=== PATIENT | female | born 1980 | race Asian ===

== ENCOUNTER 2023-02-20 16:27 | Inpatient (IN) | payer OTHER ==
[~2023-02-20] VITALS: Ht 162.6 cm; Wt 76.4 kg
[2023-02-20] MEDS ORDERED: SODIUM CHLORIDE 0.9% 1,000 ML IV ONE (16:45)
[2023-02-20 17:14] LABS: BASOPHILS % (AUTO) 0.6 % (0.0-2.0); EOSINOPHILS % (AUTO) 1.7 % (1.0-6.0); HEMATOCRIT 45.9 % (36-46); HEMOGLOBIN 14.3 g/dL (12.0-16.0); LYMPHOCYTES # (AUTO) 3.6 K/uL (1.0-4.8); LYMPHOCYTES % (AUTO) 12.7 % (22.0-44.0); MEAN CORPUSCULAR HEMOGLOBIN 19.3 pg (26.0-34.0); MEAN CORPUSCULAR VOLUME 62 fL (80-100); MONOCYTES % (AUTO) 3.6 % (2.0-9.0); NEUTROPHILS # (AUTO) 22.9 K/uL (1.8-7.7); NEUTROPHILS % (AUTO) 81.4 % (40.0-70.0); PLATELET COUNT (AUTO) 390 K/uL (150-450); RED BLOOD CELL COUNT(AUTO) 7.38 MIL/uL (4.00-5.20); RED CELL DISTRIBUTION WIDTH 15.6 % (11.5-14.5); WHITE BLOOD COUNT (AUTO) 28.1 K/uL (4.5-11.0)
[2023-02-20] MEDS ORDERED: LABETALOL HCL 5 MG/ML 20 ML VIAL IVP ONE ×2 (17:15→19:30)
[2023-02-20 17:16] LABS: GLUCOMETER DEV NAME(LOC) ER.6; GLUCOSE,POINT OF CARE 491 MG/DL (70-110)
[2023-02-20] MEDS ORDERED: INSULIN REGULAR, HUMAN 100 UNITS/ML IVP ONE ×3 (17:30→21:45)
[2023-02-20 17:43] LABS: ALANINE AMINOTRANSFERASE 15 U/L (12-78); ALBUMIN 3.5 g/dL (3.4-5.0); ALKALINE PHOSPHATASE 133 U/L (46-116); ANION GAP 17 mmol/L (8-16); ASPARTATE AMINOTRANSFERASE 20 U/L (15-37); BILIRUBIN,TOTAL 0.4 mg/dL (0.1-1.0); CALCIUM, TOTAL 9.3 mg/dL (8.8-10.5); CARBON DIOXIDE 22 mmol/L (22-29); CHLORIDE 96 mmol/L (98-107); CREATINE KINASE, TOTAL ONLY 56 U/L (26-192); CREATININE 1.18 mg/dL (0.60-1.30); GLOMERULAR FILTR. RATE CALC 51 mL/min (>60); HCG,QUANTITATIVE 1 mIU/mL (0-6); POTASSIUM 3.3 mmol/L (3.5-5.1); SODIUM SERUM 135 mmol/L (136-145); TOTAL PROTEIN, SERUM 8.3 g/dL (6.4-8.2); UREA NITROGEN, BLOOD 7 mg/dL (7-18)
[2023-02-20 17:49] LABS: TROPONIN I-HIGH SENSITIVITY 53 ng/L (<51)
[2023-02-20 17:50] LABS: GLUCOSE,RANDOM 474 mg/dL (70-110); LACTIC ACID 7.6 mmol/L (0.4-2.0)
[2023-02-20 18:21] LABS: RBC MORPHOLOGY COMMENT ABNORMAL RBC MORPH
[2023-02-20] MEDS ORDERED: AMLO5TAB66 PO (18:50)
[2023-02-20] MEDS ORDERED: LOSA-382 PO (18:50)
[2023-02-20 19:37] LABS: GLUCOMETER DEV NAME(LOC) ER.6; GLUCOSE,POINT OF CARE 389 MG/DL (70-110)
[2023-02-20] MEDS ORDERED: NITROGLYCERIN 2% (1 GM=INCH) OINTMENT PACKET TP ONE (19:45)
[2023-02-20 20:20] LABS: APPEARANCE,URINE CLEAR (CLEAR); BILIRUBIN,URINE NEGATIVE (NEGATIVE); COLOR,URINE LIGHT YELLOW (YELLOW); GLUCOSE, URINE (UA) >=1000 mg/dL (NEGATIVE); KETONES,URINE TRACE mg/dL (NEGATIVE); LEUKOCYTE ESTERASE ,URINE NEGATIVE (NEGATIVE); NITRATE,URINE NEGATIVE (NEGATIVE); OCCULT BLOOD,URINE NEGATIVE (NEGATIVE); PH,URINE 6.5 (5.0-8.0); PH,URINE DRUG SCREEN 6.5 (5.0-8.0); PROTEIN,URINE 300-600,SEE CONFIRM mg/dL (NEGATIVE); SPECIFIC GRAVITIY, URINE 1.029 (1.003-1.030); UROBILINOGEN,URINE <=1.0 mg/dL (<=1.0)
[2023-02-20 20:26] LABS: AMPHET/METH SCREEN,URINE NEGATIVE (NEGATIVE); BARBITURATE SCREEN, URINE NEGATIVE (NEGATIVE); BENZODIAZEPINES SCREEN,URINE POSITIVE (NEGATIVE); CANNABINOID SCREEN,URINE NEGATIVE (NEGATIVE); COCAINE SCREEN,URINE NEGATIVE (NEGATIVE); METHADONE SCREEN, URINE NEGATIVE (NEGATIVE); OPIATE SCREEN,URINE NEGATIVE (NEGATIVE); PHENCYCLIDINE SCREEN,URINE NEGATIVE (NEGATIVE)
[2023-02-20 20:29] LABS: ALCOHOL, URINE DRUG SCREEN NEGATIVE (NEGATIVE)
[2023-02-20 20:34] LABS: BACTERIA,URINE None Seen /HPF (None Seen); RBC,URINE None Seen /HPF (0-2); SQUAMOUS EPITHELIAL CELL,UR Few /LPF (None Seen); SULFOSALICYLIC ACID,URINE 3+ (Negative); WBC,URINE 0-2 /HPF (0-5)
[2023-02-20 21:26] LABS: COVID AG,FIA SOURCE NASAL SWAB
[2023-02-20 21:43] LABS: SARS-COV2 (COVID) ANTIGEN,FIA Negative (Negative)
[2023-02-20 21:56] LABS: GLUCOMETER DEV NAME(LOC) ER.6; GLUCOSE,POINT OF CARE 379 MG/DL (70-110)
[2023-02-20] MEDS: POTASSIUM CHL 10 MEQ/WATER 50 ML IV SCH ×2 (22:25→22:26)
[2023-02-20] MEDS ORDERED: ONDANSETRON HCL 4 MG/2 ML VIAL IVP PRN (22:30)
[2023-02-20] MEDS ORDERED: ZOLPIDEM TARTRATE 5 MG TABLET PO PRN (22:30)
[2023-02-20] MEDS ORDERED: HydrALAZINE HCL 20 MG/ML VIAL IVP PRN (22:30)
[2023-02-20] MEDS ORDERED: MAGNESIUM HYDROXIDE SUSPENSION 30 ML UDCUP PO PRN (22:30)
[2023-02-20] MEDS ORDERED: BISACODYL 10 MG RECTAL RECTAL SUPPOSITORY PR PRN (22:30)
[2023-02-20] MEDS ORDERED: MORPHINE SULFATE 2 MG/ML SYRINGE IVP PRN (22:30)
[2023-02-20] MEDS ORDERED: LORazepam 2 MG/ML VIAL IVP PRN (22:45)
[2023-02-20] MEDS ORDERED: AmLODIPine BESYLATE 10 MG TABLET PO ONE (22:45)
[2023-02-20] MEDS ORDERED: DEXTROSE 50%-WATER 25 GM/50 ML SYRINGE IVP PRN (22:45)
[2023-02-20] MEDS ORDERED: VANCOMYCIN HCL 1.5 GM in DEXTROSE 5%-WATER 250 ML IV ONE (23:00)
[2023-02-20 23:11] LABS: GLUCOMETER DEV NAME(LOC) ER.6; GLUCOSE,POINT OF CARE 400 MG/DL (70-110)
[2023-02-20] MEDS: CefTRIAXone 1 GM/DEXTROSE 50 ML IV SCH (23:12)
[2023-02-20] MEDS: ACETAMINOPHEN 325 MG TABLET PO PRN (23:12)
[2023-02-21 01:10] VITALS: BP 162/96; PULSE 90; RESP 18; TEMP 98.1
[2023-02-21] MEDS: INSULIN LISPRO 100 UNITS/ML SQ PRN ×5 (01:11→20:13)
[2023-02-21 01:16] LABS: GLUCOMETER DEV NAME(LOC) 5N.1C; GLUCOSE,POINT OF CARE 339 MG/DL (70-110)
[2023-02-21] MEDS: HEPARIN SODIUM,PORCINE 5,000 UNITS/ML VIAL SQ SCH ×4 (01:16→23:43)
[2023-02-21] MEDS ORDERED: INFLUENZA VIRUS VACCINE QVS 2023-24 (6MO+)/PF 60 MCG/0.5 ML SYRINGE IM. ONE (04:15)
[2023-02-21 05:52] VITALS: BP 145/89; PULSE 93; RESP 18; TEMP 98.7
[2023-02-21 06:55] LABS: BASOPHILS % (AUTO) 0.4 % (0.0-2.0); EOSINOPHILS % (AUTO) 0.3 % (1.0-6.0); HEMATOCRIT 36.7 % (36-46); HEMOGLOBIN 11.8 g/dL (12.0-16.0); LYMPHOCYTES # (AUTO) 3.4 K/uL (1.0-4.8); LYMPHOCYTES % (AUTO) 14.2 % (22.0-44.0); MEAN CORPUSCULAR HEMOGLOBIN 19.5 pg (26.0-34.0); MEAN CORPUSCULAR HGB CONC 32.1 G/dL (31.0-37.0); MEAN CORPUSCULAR VOLUME 61 fL (80-100); MONOCYTES # (AUTO) 1.1 K/uL (0.1-1.0); MONOCYTES % (AUTO) 4.5 % (2.0-9.0); NEUTROPHILS # (AUTO) 19.5 K/uL (1.8-7.7); NEUTROPHILS % (AUTO) 80.6 % (40.0-70.0); PLATELET COUNT (AUTO) 364 K/uL (150-450); RED BLOOD CELL COUNT(AUTO) 6.04 MIL/uL (4.00-5.20); RED CELL DISTRIBUTION WIDTH 15.4 % (11.5-14.5); WHITE BLOOD COUNT (AUTO) 24.1 K/uL (4.5-11.0)
[2023-02-21 07:10] LABS: ANION GAP 9 mmol/L (8-16); CALCIUM, TOTAL 8.2 mg/dL (8.8-10.5); CARBON DIOXIDE 27 mmol/L (22-29); CHLORIDE 102 mmol/L (98-107); CREATININE 0.69 mg/dL (0.60-1.30); GLOMERULAR FILTR. RATE CALC > 60 mL/min (>60); GLUCOSE,RANDOM 229 mg/dL (70-110); POTASSIUM 3.8 mmol/L (3.5-5.1); SODIUM SERUM 138 mmol/L (136-145); UREA NITROGEN, BLOOD 6 mg/dL (7-18)
[2023-02-21 07:42] VITALS: BP 143/80; PULSE 91; RESP 18; TEMP 98
[2023-02-21] MEDS ORDERED: VANCOMYCIN HCL 1 GM in DEXTROSE 5%-WATER 250 ML IV SCH (08:00)
[2023-02-21] MEDS: ACETAMINOPHEN 325 MG TABLET PO PRN ×2 (08:46→20:12)
[2023-02-21] MEDS: LOSARTAN POTASSIUM 50 MG TABLET PO SCH (08:46)
[2023-02-21] MEDS: AmLODIPine BESYLATE 5 MG TABLET PO SCH (08:47)
[2023-02-21] MEDS: PANTOPRAZOLE SODIUM 40 MG DR TABLET PO SCH (08:48)
[2023-02-21] MEDS: DOCUSATE SODIUM 100 MG CAPSULE PO SCH ×2 (08:48→20:12)
[2023-02-21 09:07] LABS: GLUCOMETER DEV NAME(LOC) 5N.1C; GLUCOSE,POINT OF CARE 216 MG/DL (70-110)
[2023-02-21 09:35] LABS: RBC MORPHOLOGY COMMENT ABNORMAL RBC MORPH
[2023-02-21 11:12] VITALS: BP 145/76; PULSE 87; RESP 18; TEMP 98
[2023-02-21 15:21] VITALS: BP 156/91; PULSE 90; RESP 18; TEMP 98
[2023-02-21] MEDS: VANCOMYCIN 1GM/WATER(PEG/NADA) 200 ML IV SCH ×2 (16:23→23:05)
[2023-02-21 17:26] LABS: GLUCOMETER DEV NAME(LOC) 5N.1C; GLUCOSE,POINT OF CARE 227 MG/DL (70-110)
[2023-02-21 17:26] LABS: GLUCOMETER DEV NAME(LOC) 5N.1C; GLUCOSE,POINT OF CARE 381 MG/DL (70-110)
[2023-02-21] MEDS: INSULIN GLARGINE,HUM.REC.ANLOG 100 UNITS/ML SQ SCH (20:14)
[2023-02-21 20:29] VITALS: BP 151/80; PULSE 97; RESP 20; TEMP 98.5
[2023-02-22 00:34] VITALS: BP 148/81; PULSE 93; RESP 18; TEMP 99.1
[2023-02-22] MEDS: CefTRIAXone 1 GM/DEXTROSE 50 ML IV SCH ×2 (00:45→23:07)
[2023-02-22 02:46] LABS: GLUCOMETER DEV NAME(LOC) 5N.1C; GLUCOSE,POINT OF CARE 261 MG/DL (70-110)
[2023-02-22 04:55] VITALS: BP 159/100; PULSE 85; RESP 18; TEMP 98.4
[2023-02-22 06:01] LABS: GLUCOMETER DEV NAME(LOC) 5N.1C; GLUCOSE,POINT OF CARE 231 MG/DL (70-110)
[2023-02-22] MEDS: INSULIN LISPRO 100 UNITS/ML SQ PRN ×4 (06:04→20:51)
[2023-02-22 07:21] LABS: BASOPHILS % (AUTO) 0.9 % (0.0-2.0); EOSINOPHILS % (AUTO) 3.6 % (1.0-6.0); HEMATOCRIT 35.3 % (36-46); HEMOGLOBIN 11.2 g/dL (12.0-16.0); LYMPHOCYTES # (AUTO) 4.8 K/uL (1.0-4.8); MEAN CORPUSCULAR HEMOGLOBIN 19.3 pg (26.0-34.0); MEAN CORPUSCULAR HGB CONC 31.7 G/dL (31.0-37.0); MEAN CORPUSCULAR VOLUME 61 fL (80-100); MONOCYTES % (AUTO) 6.3 % (2.0-9.0); NEUTROPHILS # (AUTO) 9.1 K/uL (1.8-7.7); NEUTROPHILS % (AUTO) 58.2 % (40.0-70.0); PLATELET COUNT (AUTO) 320 K/uL (150-450); RED CELL DISTRIBUTION WIDTH 15.6 % (11.5-14.5); WHITE BLOOD COUNT (AUTO) 15.6 K/uL (4.5-11.0)
[2023-02-22 07:41] LABS: ANION GAP 4 mmol/L (8-16); CALCIUM, TOTAL 8.8 mg/dL (8.8-10.5); CARBON DIOXIDE 32 mmol/L (22-29); CHLORIDE 102 mmol/L (98-107); CREATININE 0.77 mg/dL (0.60-1.30); GLOMERULAR FILTR. RATE CALC > 60 mL/min (>60); GLUCOSE,RANDOM 241 mg/dL (70-110); POTASSIUM 4.4 mmol/L (3.5-5.1); SODIUM SERUM 138 mmol/L (136-145); UREA NITROGEN, BLOOD 11 mg/dL (7-18); VANCOMYCIN,RANDOM 13.4 mcg/mL (25.0-50.0)
[2023-02-22 08:18] VITALS: BP 164/104; PULSE 92; RESP 19; TEMP 98.8
[2023-02-22] MEDS: PANTOPRAZOLE SODIUM 40 MG DR TABLET PO SCH (08:32)
[2023-02-22] MEDS: AmLODIPine BESYLATE 5 MG TABLET PO SCH (08:32)
[2023-02-22] MEDS: DOCUSATE SODIUM 100 MG CAPSULE PO SCH ×2 (08:32→20:47)
[2023-02-22] MEDS: LOSARTAN POTASSIUM 50 MG TABLET PO SCH (08:32)
[2023-02-22] MEDS: ACETAMINOPHEN 325 MG TABLET PO PRN ×2 (08:33→12:28)
[2023-02-22] MEDS: VANCOMYCIN 1GM/WATER(PEG/NADA) 200 ML IV SCH ×2 (08:34→16:46)
[2023-02-22] MEDS: INSULIN GLARGINE,HUM.REC.ANLOG 100 UNITS/ML SQ SCH ×2 (08:54→20:52)
[2023-02-22] MEDS: HEPARIN SODIUM,PORCINE 5,000 UNITS/ML VIAL SQ SCH ×3 (08:55→23:07)
[2023-02-22 10:13] LABS: RBC MORPHOLOGY COMMENT ABNORMAL RBC MORPH
[2023-02-22 11:24] VITALS: BP 150/126; PULSE 94; RESP 19; TEMP 98.4
[2023-02-22 12:16] LABS: GLUCOMETER DEV NAME(LOC) 5N.1C; GLUCOSE,POINT OF CARE 266 MG/DL (70-110)
[2023-02-22 13:15] LABS: CHOL/HDL RATIO 4.5 (3.9-5.7); CHOLESTEROL 144 mg/dL (131-200); HDL CHOLESTEROL 32 mg/dL (40-60); LDL CHOL (CALC.) 40 mg/dL (0-130); TRIGLYCERIDES 360 mg/dL (15-150)
[2023-02-22] MEDS: HYDROCODONE/ACETAMINOPHEN 5-325 MG TABLET PO PRN (14:45)
[2023-02-22 15:18] VITALS: BP 142/94; PULSE 88; RESP 18; TEMP 98.2
[2023-02-22 17:31] LABS: GLUCOMETER DEV NAME(LOC) 5N.1C; GLUCOSE,POINT OF CARE 277 MG/DL (70-110)
[2023-02-22] MEDS: ASPIRIN 81 MG CHEWABLE TABLET PO SCH (18:31)
[2023-02-22] MEDS: CLOPIDOGREL BISULFATE 75 MG TABLET PO SCH (18:33)
[2023-02-22 19:57] VITALS: BP 159/91; PULSE 84; RESP 18; TEMP 98.5
[2023-02-23 00:14] VITALS: BP 160/96; PULSE 80; RESP 18; TEMP 98.4
[2023-02-23 04:47] VITALS: BP 158/94; PULSE 76; RESP 18; TEMP 98.2
[2023-02-23 06:26] LABS: GLUCOMETER DEV NAME(LOC) 5N.1C; GLUCOSE,POINT OF CARE 237 MG/DL (70-110)
[2023-02-23] MEDS: INSULIN LISPRO 100 UNITS/ML SQ PRN ×3 (06:32→20:41)
[2023-02-23 06:56] LABS: GLUCOMETER DEV NAME(LOC) 5N.1C; GLUCOSE,POINT OF CARE 177 MG/DL (70-110)
[2023-02-23 06:56] LABS: BASOPHILS % (AUTO) 0.7 % (0.0-2.0); EOSINOPHILS % (AUTO) 5.1 % (1.0-6.0); HEMATOCRIT 36.5 % (36-46); HEMOGLOBIN 11.5 g/dL (12.0-16.0); LYMPHOCYTES # (AUTO) 4.6 K/uL (1.0-4.8); LYMPHOCYTES % (AUTO) 31.9 % (22.0-44.0); MEAN CORPUSCULAR HEMOGLOBIN 19.2 pg (26.0-34.0); MEAN CORPUSCULAR HGB CONC 31.4 G/dL (31.0-37.0); MEAN CORPUSCULAR VOLUME 61 fL (80-100); MONOCYTES # (AUTO) 0.9 K/uL (0.1-1.0); MONOCYTES % (AUTO) 6.3 % (2.0-9.0); PLATELET COUNT (AUTO) 320 K/uL (150-450); RED BLOOD CELL COUNT(AUTO) 5.96 MIL/uL (4.00-5.20); RED CELL DISTRIBUTION WIDTH 15.5 % (11.5-14.5); WHITE BLOOD COUNT (AUTO) 14.3 K/uL (4.5-11.0)
[2023-02-23 06:59] LABS: ANION GAP 8 mmol/L (8-16); CALCIUM, TOTAL 8.9 mg/dL (8.8-10.5); CARBON DIOXIDE 30 mmol/L (22-29); CHLORIDE 101 mmol/L (98-107); CREATININE 0.68 mg/dL (0.60-1.30); GLOMERULAR FILTR. RATE CALC > 60 mL/min (>60); GLUCOSE,RANDOM 172 mg/dL (70-110); POTASSIUM 4.2 mmol/L (3.5-5.1); SODIUM SERUM 139 mmol/L (136-145); UREA NITROGEN, BLOOD 9 mg/dL (7-18)
[2023-02-23 07:33] VITALS: BP 152/89; PULSE 74; RESP 18; TEMP 98.5
[2023-02-23] MEDS: LOSARTAN POTASSIUM 50 MG TABLET PO SCH (08:44)
[2023-02-23] MEDS: HYDROCODONE/ACETAMINOPHEN 5-325 MG TABLET PO PRN ×3 (08:44→18:46)
[2023-02-23] MEDS: ASPIRIN 81 MG CHEWABLE TABLET PO SCH (08:44)
[2023-02-23] MEDS: DOCUSATE SODIUM 100 MG CAPSULE PO SCH ×2 (08:45→20:42)
[2023-02-23] MEDS: PANTOPRAZOLE SODIUM 40 MG DR TABLET PO SCH (08:45)
[2023-02-23] MEDS: CLOPIDOGREL BISULFATE 75 MG TABLET PO SCH (08:45)
[2023-02-23] MEDS: AmLODIPine BESYLATE 5 MG TABLET PO SCH (08:45)
[2023-02-23] MEDS: HEPARIN SODIUM,PORCINE 5,000 UNITS/ML VIAL SQ SCH ×3 (08:45→23:18)
[2023-02-23] MEDS: VANCOMYCIN 1GM/WATER(PEG/NADA) 200 ML IV SCH ×2 (08:51)
[2023-02-23] MEDS: INSULIN GLARGINE,HUM.REC.ANLOG 100 UNITS/ML SQ SCH ×2 (08:53→20:40)
[2023-02-23 11:07] VITALS: BP 144/78; PULSE 81; RESP 18; TEMP 98.5
[2023-02-23 15:20] VITALS: BP 140/84; PULSE 85; RESP 18; TEMP 98.3
[2023-02-23 20:46] VITALS: BP 156/74; PULSE 81; RESP 18; TEMP 98.5
[2023-02-23 22:36] LABS: GLUCOMETER DEV NAME(LOC) 5S.2C; GLUCOSE,POINT OF CARE 246 MG/DL (70-110)
[2023-02-23 22:36] LABS: GLUCOMETER DEV NAME(LOC) 5S.2C; GLUCOSE,POINT OF CARE 247 MG/DL (70-110)
[2023-02-24 00:11] LABS: GLUCOMETER DEV NAME(LOC) 5N.1C; GLUCOSE,POINT OF CARE 193 MG/DL (70-110)
[2023-02-24 01:44] VITALS: BP 175/96; PULSE 81; RESP 16; TEMP 98.4
[2023-02-24 04:00] VITALS: BP 160/91; PULSE 89; RESP 18; TEMP 98.9
[2023-02-24] MEDS: INSULIN LISPRO 100 UNITS/ML SQ PRN ×2 (05:40→12:20)
[2023-02-24] MEDS: HYDROCODONE/ACETAMINOPHEN 5-325 MG TABLET PO PRN (05:43)
[2023-02-24 08:37] VITALS: BP 152/84; PULSE 80; RESP 18; TEMP 98.4
[2023-02-24] MEDS ORDERED: AmLODIPine BESYLATE 5 MG TABLET PO SCH (09:00)
[2023-02-24] MEDS: HEPARIN SODIUM,PORCINE 5,000 UNITS/ML VIAL SQ SCH (09:26)
[2023-02-24] MEDS: ASPIRIN 81 MG CHEWABLE TABLET PO SCH (09:27)
[2023-02-24] MEDS: PANTOPRAZOLE SODIUM 40 MG DR TABLET PO SCH (09:27)
[2023-02-24] MEDS: CLOPIDOGREL BISULFATE 75 MG TABLET PO SCH (09:27)
[2023-02-24] MEDS: DOCUSATE SODIUM 100 MG CAPSULE PO SCH (09:27)
[2023-02-24] MEDS: LOSARTAN POTASSIUM 50 MG TABLET PO SCH (09:28)
[2023-02-24] MEDS: INSULIN GLARGINE,HUM.REC.ANLOG 100 UNITS/ML SQ SCH (09:36)
[2023-02-24 11:20] VITALS: BP 153/78; PULSE 77; RESP 19; TEMP 98.3
[2023-02-24 11:56] LABS: GLUCOMETER DEV NAME(LOC) 5N.1C; GLUCOSE,POINT OF CARE 224 MG/DL (70-110)
[2023-02-24] MEDS: ACETAMINOPHEN 325 MG TABLET PO PRN (12:21)
[2023-02-24 12:31] LABS: GLUCOMETER DEV NAME(LOC) 5S.2C; GLUCOSE,POINT OF CARE 239 MG/DL (70-110)
[2023-02-24] MEDS ORDERED: AMLO-257 PO (13:07)
[2023-02-24] MEDS ORDERED: CLOP75TA60 PO (13:07)
[2023-02-24] MEDS ORDERED: ASPI-1450 PO (13:07)
[2023-02-24] MEDS ORDERED: INSLAN SQ (13:07)
[2023-02-24] MEDS ORDERED: LOSA-382 PO (13:07)
[2023-02-24] MEDS ORDERED: METF-1211 PO (13:07)
[2023-02-24 23:46] LABS: GLUCOMETER DEV NAME(LOC) 5S.2C; GLUCOSE,POINT OF CARE 206 MG/DL (70-110)
== END 2023-02-24 14:50 | disposition home health service (06) | DRG 45 ==
LOC: EMS 16:31 → AHU 18:53 → 5N 19:36
PROVIDERS: ADMIT Internal Medicine; ATTEND Internal Medicine
DX: I63.9 Cerebral infarction, unspecified (principal); E11.00 Type 2 diabetes mellitus with hyperosmolarity without nonketotic hyperglycemic-hyperosmolar coma (NKHHC); R56.9 Unspecified convulsions; R65.10 Systemic inflammatory response syndrome (SIRS) of non-infectious origin without acute organ dysfunction; I16.0 Hypertensive urgency; Z20.822 Contact with and (suspected) exposure to COVID-19; E87.6 Hypokalemia; I10 Essential (primary) hypertension; Z79.899 Other long term (current) drug therapy
CPT/HCPCS: 51702; 70450; 70544; 70551; 71045; 80048; 80053; 80061; 80202; 80307; 81001; 81002; 82009; 82550; 82962; 83036; 83605; 84484; 84702; 84703; 85025; 85379; 85610; 85730; 87040; 93005; 93306; 93880; 97112; 97116; 97163; 97166; 97530; 97535; 99285; J0360; J0696; J1644; J1815; J3370; J3480; J3490; J7030; J7060; Q9967; 36415-L1; 36415-TC